=== PATIENT | male | born 1995 | race Hispanic/Latino ===

== ENCOUNTER 2018-09-18 03:52 | Emergency (ER) | payer OTHER ==
--- NOTE | 2018-09-18 04:55 | ER ---
Nurse's Notes [facility] Name: Jose Angel Hough Age: 23 yrs Sex: Male : 1995 Arrival Date: 09/18/2018 Time: 04:02 Bed 19 Private MD: Diagnosis: Streptococcal tonsillitis;Streptococcal pharyngitis Presentation: 09/18 04:07 Presenting complaint: Patient states: throat pain since Friday. pt stated he missed ak1 work . pt c/o he can not sleep. Transition of care: patient was not received from another setting of care. Onset of symptoms is unknown. Risk Assessment: Do you want to hurt yourself or someone else? Patient reports no desire to harm self or others. Initial Sepsis Screen: Does the patient meet any 2 criteria? No. Patient's initial sepsis screen is negative. Does the patient have a suspected source of infection? No. Patient's initial sepsis screen is negative. Care prior to arrival: None. 04:07 Method Of Arrival: Ambulatory ak1 04:07 Acuity: BOGDAN 4 ak1 Triage Assessment: 04:09 General: Appears in no apparent distress. Behavior is calm, cooperative. Pain: ak1 Complains of pain in throat. EENT: Throat is reddened with gag reflex present. Neuro: No deficits noted. Cardiovascular: No deficits noted. Respiratory: No deficits noted. GI: No signs and/or symptoms were reported involving the gastrointestinal system. : No signs and/or symptoms were reported regarding the genitourinary system. Derm: No signs and/or symptoms reported regarding the dermatologic system. Musculoskeletal: No signs and/or symptoms reported regarding the musculoskeletal system. Historical: - Allergies: 04:09 No Known Allergies; ak1 - Home Meds: 04:09 None [Active]; ak1 - PMHx: 04:09 reflux; ak1 - PSHx: 04:09 None; ak1 - Immunization history:: Adult Immunizations unknown. - Social history:: Smoking status: Patient uses tobacco products, denies chronic smoking, but will smoke occasionally. - Ebola Screening: : No symptoms or risks identified at this time. Screenin:10 Abuse screen: Denies threats or abuse. Denies injuries from another. Nutritional ak1 screening: No deficits noted. Tuberculosis screening: No symptoms or risk factors identified. Fall Risk None identified. Assessment: 04:10 Respiratory: Airway is patent Respiratory effort is even, unlabored, Breath sounds are ak1 clear. 04:11 Reassessment: Patient appears in no apparent distress at this time. No changes from ak1 previously documented assessment. Patient is alert, oriented x 3, equal unlabored respirations, skin warm/dry/pink. see triage assessment. Vital Signs: 04:09 BP 156 / 89; Pulse 87; Resp 18; Temp 97.8(O); Pulse Ox 99% on R/A; Weight 63.5 kg (R); ak1 Height 5 ft. 7 in. (170.18 cm) (R); Pain 10/10; 05:06 BP 130 / 79; Pulse 84; Resp 16; Temp 98; Pulse Ox 98% on R/A; Pain 10/10; ak1 04:09 Body Mass Index 21.93 (63.50 kg, 170.18 cm) ak1 ED Course: 04:02 Patient arrived in ED. 04:06 Hailey Parker, RN is Primary Nurse. ak1 04:08 Triage completed. ak1 04:09 Arm band placed on Patient placed in an exam room, on a stretcher, on pulse oximetry, ak1 Patient notified of wait time. 04:10 Patient has correct armband on for positive identification. Bed in low position. Call ak1 light in reach. Side rails up X 1. Pulse ox on. NIBP on. 04:38 Luis Alvarado MD is Attending Physician. 05:03 No provider procedures requiring assistance completed. Patient did not have IV access ak1 during this emergency room visit. Administered Medications: No medications were administered Outcome: 04:54 Discharge ordered by . 05:07 Discharged to home ambulatory, with family. ak1 05:07 Condition: good 05:07 Discharge instructions given to patient, family, Instructed on discharge instructions, follow up and referral plans. no drinking with medication, no driving heavy equipment, medication usage, Demonstrated understanding of instructions, follow-up care, medications, Prescriptions given X 2. 05:07 Patient left the ED. ak1 Signatures: Gianna Amin Amber, EVAN RN ak1 Luis Alvarado MD MD
--- NOTE | 2018-09-18 04:55 | EDPHYS ---
Physician Documentation [facility] Name: Jose Angel Hough Age: 23 yrs Sex: Male : 1995 Arrival Date: 09/18/2018 Time: 04:02 Bed 19 Private MD: ED Physician Luis Alvarado HPI: 09/18 04:52 This 23 yrs old Male presents to ER via Ambulatory with complaints of Sore gs Throat. 04:52 The patient presents with sore throat. Onset: The symptoms/episode began/occurred 2 gs day(s) ago, and became persistent. Severity of symptoms: At their worst the symptoms were moderate, in the emergency department the symptoms are unchanged. Modifying factors: the symptoms are aggravated by foods, swallowing. Associated signs and symptoms: Pertinent negatives chills, cough. The patient has not experienced similar symptoms in the past. The patient has not recently seen a physician. Historical: - Allergies: 04:09 No Known Allergies; ak1 - Home Meds: 04:09 None [Active]; ak1 - PMHx: 04:09 reflux; ak1 - PSHx: 04:09 None; ak1 - Immunization history:: Adult Immunizations unknown. - Social history:: Smoking status: Patient uses tobacco products, denies chronic smoking, but will smoke occasionally. - Ebola Screening: : No symptoms or risks identified at this time. ROS: 04:52 All other systems are negative. gs Exam: 04:52 Head/Face: Normocephalic, atraumatic. Eyes: Pupils equal round and reactive to light, gs extra-ocular motions intact. Lids and lashes normal. Conjunctiva and sclera are non-icteric and not injected. Cornea within normal limits. Periorbital areas with no swelling, redness, or edema. Neck: Trachea midline, no thyromegaly or masses palpated, and no cervical lymphadenopathy. Supple, full range of motion without nuchal rigidity, or vertebral point tenderness. No Meningismus. Chest/axilla: Normal chest wall appearance and motion. Nontender with no deformity. No lesions are appreciated. Cardiovascular: Regular rate and rhythm with a normal S1 and S2. No gallops, murmurs, or rubs. Normal PMI, no JVD. No pulse deficits. Respiratory: Lungs have equal breath sounds bilaterally, clear to auscultation and percussion. No rales, rhonchi or wheezes noted. No increased work of breathing, no retractions or nasal flaring. Abdomen/GI: Soft, non-tender, with normal bowel sounds. No distension or tympany. No guarding or rebound. No evidence of tenderness throughout. Back: No spinal tenderness. No costovertebral tenderness. Full range of motion. Skin: Warm, dry with normal turgor. Normal color with no rashes, no lesions, and no evidence of cellulitis. MS/ Extremity: Pulses equal, no cyanosis. Neurovascular intact. Full, normal range of motion. Neuro: Awake and alert, GCS 15, oriented to person, place, time, and situation. Cranial nerves II-XII grossly intact. Motor strength 5/5 in all extremities. Sensory grossly intact. Cerebellar exam normal. Normal gait. 04:52 Constitutional: The patient appears alert, awake. 04:52 ENT: Posterior pharynx: erythema, that is moderate, exudate, that is mild. Vital Signs: 04:09 BP 156 / 89; Pulse 87; Resp 18; Temp 97.8(O); Pulse Ox 99% on R/A; Weight 63.5 kg (R); ak1 Height 5 ft. 7 in. (170.18 cm) (R); Pain 10/10; 05:06 BP 130 / 79; Pulse 84; Resp 16; Temp 98; Pulse Ox 98% on R/A; Pain 10/10; ak1 04:09 Body Mass Index 21.93 (63.50 kg, 170.18 cm) ak1 MDM: 04:39 Patient medically screened. gs 04:52 Differential diagnosis: group A strep tonsillitis, upper respiratory infection, viral gs syndrome. Data reviewed: vital signs, nurses notes. Counseling: I had a detailed discussion with the patient and/or guardian regarding: the historical points, exam findings, and any diagnostic results supporting the discharge/admit diagnosis, the presence of at least one elevated blood pressure reading (>120/80) during this emergency department visit, lab results. Response to treatment: the patient's symptoms have markedly improved after treatment. Special discussion: I have referred the patient to see his PCP for further evaluation of high blood pressure. 09/18 04:07 Order name: Strep; Complete Time: 04:48 ak1 Administered Medications: No medications were administered Disposition: 09/18/18 04:54 Discharged to Home. Impression: Streptococcal tonsillitis, Streptococcal pharyngitis. - Condition is Stable. - Discharge Instructions: Strep Throat. - Prescriptions for Amoxicillin 875 mg Oral Tablet - take 1 tablet by ORAL route every 12 hours for 10 days; 20 tablet. Tylenol- Codeine #3 300-30 mg Oral Tablet - take 1 tablet by ORAL route every 6 hours As needed; 12 tablet. - Work release form, Medication Reconciliation Form, Thank You Letter, Antibiotic Education, Prescription Opioid Use form. - Follow up: Private Physician; When: 2 - 3 days; Reason: Re-evaluation by your physician. Signatures: Dispatcher [employer] EDHailey Tiwari RN RN ak1 Luis Alvarado MD MD gs Corrections: (The following items were deleted from the chart) 05:07 04:54 09/18/2018 04:54 Discharged to Home. Impression: Streptococcal tonsillitis; ak1 Streptococcal pharyngitis. Condition is Stable. Forms are Medication Reconciliation Form, Thank You Letter, Antibiotic Education, Prescription Opioid Use. Follow up: Private Physician; When: 2 - 3 days; Reason: Re-evaluation by your physician. gs
== END 2018-09-18 05:07 | disposition home or self-care (01) ==
LOC: ER 03:52
DX: J03.00 Acute streptococcal tonsillitis, unspecified (principal); Z72.0 Tobacco use
CPT/HCPCS: 87081

== ENCOUNTER 2024-10-07 13:25 | Emergency (ER) | payer SELFPAY ==
--- NOTE | 2024-10-07 14:46 | RAD REPORT ---
EXAM: XR Hand Right 3 View HISTORY: [facility] MA[facility] injury Bed: COMPARISON: None. TECHNIQUE: 3 radiographic views of the RIGHT hand submitted. FINDINGS: No evidence of acute fracture or dislocation. Joint alignment is maintained. No soft tissu e swelling is seen.. No significant degenerative changes are present. IMPRESSION: No significant bone or joint abnormality.
[2024-10-07] MEDS ORDERED: BUPIVACAINE 0.5% PF 10 ML VIAL ONE (14:57)
[2024-10-07] MEDS ORDERED: LIDOCAINE 1% 20 ML MDV ONE (14:59)
[2024-10-07] MEDS ORDERED: IBUPROFEN 400 MG TAB ONE (15:40)
[2024-10-07] MEDS ORDERED: TDAP (DIPHTH,PERTUSS(ACELL),TET VAC) 0.5 ML VIAL IMVAC ONE (15:41)
[2024-10-07] MEDS ORDERED: HYDROCODONE/APAP 5/325 MG TAB ONE (15:41)
--- NOTE | 2024-10-07 15:46 | ER ---
Nurse's Notes [facility] Name: Jose Angel Hough Age: 29 yrs Sex: Male : 1995 Arrival Date: 10/07/2024 Time: 13:25 Bed Treatment Private MD: Diagnosis: Laceration without foreign body of right middle finger without damage to nail Presentation: 10/07 13:35 Chief complaint: EMS states: toned out for fall with injury to right middle finger. me1 States the finger bent backwards. Coronavirus screen: Vaccine status: Patient reports being unvaccinated. Ebola Screen: No symptoms or risks identified at this time. Initial Sepsis Screen: Does the patient meet any 2 criteria? No. Patient's initial sepsis screen is negative. Does the patient have a suspected source of infection? No. Patient's initial sepsis screen is negative. Risk Assessment: Do you want to hurt yourself or someone else? Patient reports no desire to harm self or others. Onset of symptoms was October 07, 2024 at 12:00. 13:35 Method Of Arrival: EMS: [facility] [place] 13:35 Acuity: BOGDAN 4 me1 Triage Assessment: 15:50 Injury Description: laceration. ap3 Historical: - Allergies: 13:37 No Known Allergies; me1 - Home Meds: 13:37 None [Active]; me1 - PMHx: 13:37 reflux; me1 - PSHx: 13:37 None; me1 - Immunization history:: Adult Immunizations Last tetanus immunization: unknown. - Infectious Disease History:: Denies. - Social history:: Smoking status: Reported history of juuling and/or vaping. Patient/guardian denies using tobacco, but has a distant history of tobacco abuse. Screenin:49 [facility] ED Fall Risk Assessment (Adult) History of falling in the last 3 months, ap3 including since admission Yes- single mechanical fall (1 pt) Confusion or Disorientation No (0 pts) Intoxicated or Sedated No (0 pts) Impaired Gait No (0 pts) Mobility Assist Device Used No (0 pt) Altered Elimination No (0 pt) Score/Fall Risk Level 0 - 2 = Low Risk Oriented to surroundings, Maintained a safe environment, Educated pt \T\ family on fall prevention, incl call for assistance when getting out of bed, Assessed \T\ reinforced patient's understanding of fall precautions, Hourly rounding (assess needs \T\ fall precautionary measures) done, Used ambulatory aids as needed (educated on \T\ assisted with). Abuse screen: Denies threats or abuse. Nutritional screening: No deficits noted. Tuberculosis screening: No symptoms or risk factors identified. Assessment: 15:48 General: Appears in no apparent distress. Behavior is calm, cooperative, appropriate ap3 for age. Pain: Complains of pain in right hand. Neuro: Level of Consciousness is awake, alert, obeys commands. Cardiovascular: Patient's skin is warm and dry. Respiratory: Airway is patent Respiratory effort is even, unlabored, Respiratory pattern is regular, symmetrical. Musculoskeletal: Reports pain in right hand. Vital Signs: 13:35 BP 137 / 97; Pulse 84; Resp 16; Temp 98.4; Pulse Ox 98% ; Weight 61.23 kg; Height 5 ft. me1 7 in. ; Pain 4/10; 13:35 Body Mass Index 21.14 (61.23 kg, 170.18 cm) me1 13:35 Pain Scale: Adult me1 ED Course: 13:34 Patient arrived in ED. al6 13:35 González Tobias PA is PHCP. cp 13:35 González Galdamez MD is Attending Physician. cp 13:37 Triage completed. me1 13:37 Arm band placed on Patient placed in waiting room. me1 14:00 XRAY Hand RIGHT 3 View In Process Unspecified. EDMS 15:49 Assist provider with laceration repair on right hand using sutures. Set up tray. ap3 Performed by González AHMADI Patient tolerated well. 15:50 Patient has correct armband on for positive identification. Provided Education on: ap3 medications prior to administration. 15:50 Patient did not have IV access during this emergency room visit. ap3 16:14 Bailey Smallwood, RN is Primary Nurse. ap3 Administered Medications: 15:47 Drug: Ibuprofen PO 800 mg PO once Route: PO; ap3 16:15 Follow up: Response: No adverse reaction; Pain is decreased ap3 15:47 Not Given (Patient Refused): hydrocodone-acetaminophen5 mg-325 mg 1 tabs PO once ap3 15:47 Drug: Boostrix Tdap IM 0.5 ml IM once; as a single dose Route: IM; Site: left deltoid; ap3 16:15 Follow up: Response: (VIS) Vaccine information sheet provided today. Questions and/or ap3 concerns addressed. VIS edition date: Apr 06, 2021. 15:47 Drug: Lidocaine Infiltration (1 %) 5 ml 5 ml Infiltration once; to bedside {Note: by ap3 pa. rashawn} Volume: 5 ml; Route: Infiltration; 15:48 Drug: Bupivacaine Infiltration (0.5 %) 10 ml 10 ml Infiltration once {Note: by gonzález ahmadi.} Volume: 10 ml; Route: Infiltration; 16:08 Drug: Doxycycline PO 100 mg PO once Route: PO; ap3 16:15 Follow up: Response: Medication administered at discharge. ap3 Medication: 15:50 Vaccine Information Statement (VIS) provided today. Questions and/or concerns ap3 addressed. VIS edition date: April 2018. Outcome: 15:46 Discharge ordered by . cp 16:14 Discharged to home ambulatory, ap3 16:14 Condition: good 16:14 Discharge instructions given to patient, Instructed on discharge instructions, follow up and referral plans. medication usage, Demonstrated understanding of instructions, follow-up care, medications, Prescriptions given X 2, 16:14 Patient left the ED. ap3 Signatures: Dispatcher [employer] EDPR González Tobias PA PA cp Prokisch, Amanda RN RN ap3 Vesna España RN RN me1 Brianda Wills al6
--- NOTE | 2024-10-07 15:46 | EDPHYS ---
Physician Documentation [facility] Name: Jose Angel Hough Age: 29 yrs Sex: Male : 1995 Arrival Date: 10/07/2024 Time: 13:25 Bed Treatment Private MD: ED Physician González Galdamez HPI: 10/07 13:40 This 29 yrs old Male presents to ER via EMS with complaints of Finger Injury. cp 13:40 Onset: The symptoms/episode began/occurred just prior to arrival. cp 13:40 The patient or guardian reports injury, pain. The complaints affect the right middle cp finger. Context: resulted [place], [place] Historical: - Allergies: 13:37 No Known Allergies; me1 - Home Meds: 13:37 None [Active]; me1 - PMHx: 13:37 reflux; me1 - PSHx: 13:37 None; me1 - Immunization history:: Adult Immunizations Last tetanus immunization: unknown. - Infectious Disease History:: Denies. - Social history:: Smoking status: Reported history of juuling and/or vaping. Patient/guardian denies using tobacco, but has a distant history of tobacco abuse. ROS: 13:45 MS/extremity: Positive for injury or acute deformity, laceration, of the right hand, cp 13:45 Eyes: Negative for injury, pain, redness, and discharge, cp 13:45 Constitutional: Negative for body aches, chills, fever, poor PO intake, 13:45 Neuro: Negative for altered mental status, dizziness, headache, weakness, 13:45 All other systems are negative, Exam: 13:50 Constitutional: The patient appears in no acute distress, alert, awake, well developed, cp well nourished, anxious, uncomfortable, 13:50 Head/Face: Normocephalic, atraumatic. cp 13:50 Cardiovascular: Rate: normal, 13:50 Respiratory: the patient does not display signs of respiratory distress, Respirations: normal, no use of accessory muscles, no retractions, labored breathing, is not present, Breath sounds: are clear throughout, no decreased breath sounds, no stridor, no wheezing, 13:50 Musculoskeletal/extremity: Extremities: noted in the right hand: transverse laceration across curtis side interphalangeal joint right middle finger, ROM: Perfusion: the extremity is normally perfused throughout, the right middle finger Sensation intact. Tendon exam: specific tendon testing normal through active and passive range of motion Vital Signs: 13:35 BP 137 / 97; Pulse 84; Resp 16; Temp 98.4; Pulse Ox 98% ; Weight 61.23 kg; Height 5 ft. me1 7 in. ; Pain 4/10; 13:35 Body Mass Index 21.14 (61.23 kg, 170.18 cm) me1 13:35 Pain Scale: Adult me1 Laceration: 15:43 Wound Repair of 2cm ( 0.8in ) subcutaneous laceration to right middle finger. Linear cp shaped.. Distal neuro/vascular/tendon intact. Anesthesia: Digital block administered with 7 mls of Lido/Marcaine. Wound prep: Moderate cleansing by me, Wound irrigation by me. Skin closed with 4 4-0 Prolene using interrupted sutures and sterile technique. Dressed with Bacitracin. Patient tolerated well. MDM: 13:38 Medical Screening Exam initiated cp 15:46 Data reviewed: vital signs, nurses notes, radiologic studies, plain films, and as a cp result, I will discharge patient. 10/07 13:36 Order name: XRAY Hand RIGHT 3 View; Complete Time: 14:48 cp 10/07 14:48 Interpretation: Report reviewed. cp 10/07 14:28 Order name: Wound Care: please clean and irrigate wound; Complete Time: 15:48 cp 10/07 15:45 Order name: Finger Splint; Complete Time: 16:00 cp Administered Medications: 15:47 Drug: Ibuprofen PO 800 mg PO once Route: PO; ap3 16:15 Follow up: Response: No adverse reaction; Pain is decreased ap3 15:47 Not Given (Patient Refused): hydrocodone-acetaminophen5 mg-325 mg 1 tabs PO once ap3 15:47 Drug: Boostrix Tdap IM 0.5 ml IM once; as a single dose Route: IM; Site: left deltoid; ap3 16:15 Follow up: Response: (VIS) Vaccine information sheet provided today. Questions and/or ap3 concerns addressed. VIS edition date: Apr 06, 2021. 15:47 Drug: Lidocaine Infiltration (1 %) 5 ml 5 ml Infiltration once; to bedside {Note: by ap3 daiana morocho.} Volume: 5 ml; Route: Infiltration; 15:48 Drug: Bupivacaine Infiltration (0.5 %) 10 ml 10 ml Infiltration once {Note: by gonzález baird} Volume: 10 ml; Route: Infiltration; 16:08 Drug: Doxycycline PO 100 mg PO once Route: PO; ap3 16:15 Follow up: Response: Medication administered at discharge. ap3 Disposition Summary: 10/07/24 15:46 Discharge Ordered Notes: Location: Home cp Problem: new cp Symptoms: have improved cp Condition: Stable cp Diagnosis - Laceration without foreign body of right middle finger without damage to nail cp Followup: cp - With: Private Physician - When: 10 - 14 days - Reason: Staple/Suture removal Discharge Instructions: - Discharge Summary Sheet cp - Laceration Care, Adult cp Forms: - Medication Reconciliation Form cp - Antibiotic Education cp - Prescription Opioid Use cp - Patient Portal Instructions cp - Leadership Thank You Letter cp Prescriptions: - Ibuprofen 800 mg Oral Tablet - take 1 tablet ORAL route every 8 hours As needed take with food; 30 tablet; cp Refills: 0, Product Selection Permitted - Doxycycline Monohydrate 100 mg Oral Tablet - take 1 tablet ORAL route every 12 hours for 10 days; 20 tablet; Refills: 0, cp Product Selection Permitted Addendum: 10/08/2024 23:24 Co-signature as Attending Physician, González Galdamez MD I agree with the assessment and c garner plan of care. Signatures: Dispatcher [employer] González Garcia MD MD cha Page, Corey, PA PA cp Bailey Smallwood RN RN ap3 Vesna España RN RN me1
[2024-10-07] MEDS ORDERED: DOXYCYCLINE 100 MG CAP PO ONE (15:57)
[2024-10-07 16:22] VITALS: BP 137/97; TEMP 98.4; O2SAT 98
== END 2024-10-07 16:14 | disposition home or self-care (01) ==
LOC: ER 13:25
DX: S61.212A Laceration without foreign body of right middle finger without damage to nail, initial encounter (principal)
CPT/HCPCS: 96372; 99284; J2003